=== PATIENT | female | born 1990 | race Caucasian/White ===

== ENCOUNTER 2024-03-08 16:30 | Emergency (ER) | payer OTHER ==
[~2024-03-08] VITALS: Ht 172.7 cm; Wt 65.8 kg
[~2024-03-08 16:30] MED LIST: VICODIN 5-3001 EACH PO
[2024-03-08] MEDS ORDERED: Midazolam Hydrochloride 5 MG/ML VIAL INH ONE (16:35)
[2024-03-08] MEDS ORDERED: Midazolam Hydrochloride 5 MG/5 ML VIAL IM ONE (17:00)
[2024-03-08 17:35] LABS: BASO % 0.4 % (0.0-1.0); EOS % 0.2 % (1.0-4.0); HEMATOCRIT 34.6 % (37.0-47.0); MEAN CELL VOLUME 90.1 fl (81.0-99.0); MEAN CORPUSCULAR HGB 29.7 pg (27.0-31.0); MEAN CORPUSCULAR HGB CONC 32.9 g/dl (33.0-37.0); MEAN PLATELET VOLUME 10.4 fl (9.6-12.3); MONO # 0.5 10*3/uL (0.1-1.0); MONO % 5.9 % (3.0-9.0); NEUT # 5.4 10*3/uL (2.3-7.9); NEUT % 66.3 % (47.0-73.0); PLATELET COUNT AUTOMATED 240 10*3/uL (130-400); RED BLOOD COUNT 3.84 10*6/uL (4.10-5.10); RED CELL DISTRI WIDTH 12.2 % (0-14.5); WHITE BLOOD COUNT 8.1 10*3/uL (4.8-10.8)
[2024-03-08 18:03] LABS: ALKALINE PHOSPHATASE 76 U/L (46-116); BUN 8 mg/dl (9-23); CHLORIDE 107 mmol/L (98-107); CPK 164 U/L (34-171); POTASSIUM 3.3 mmol/L (3.4-5.1); SGPT/ALT 21 U/L (5-49); TOTAL PROTEIN 7.7 gm/dL (6.0-8.0)
[2024-03-08 18:14] LABS: ETHYL ALCOHOL < 3.0 mg/dl (<3)
[2024-03-08 20:21] LABS: BILIRUBIN Negative (Negative); BLOOD Trace-Intact (Negative); CLARITY Clear (Clear); COLOR Yellow (Yellow); GLUCOSE Negative (Negative); KETONE Negative (Negative); LEUKO ESTERASE 2+ (Negative); NITRITE Negative (Negative); UROBILINOGEN 0.2 E.U./dl (0.0-1.0)
[2024-03-08 20:28] LABS: URINE AMPHETAMINES Negative (1000ng/ml); URINE BARBITURATES Negative (200ng/ml); URINE BENZODIAZEPINES Positive (200ng/ml); URINE CANNABINOIDS (THC) Positive (50ng/ml); URINE COCAINE Negative (300ng/ml); URINE METHADONE Negative (300ng/ml); URINE OPIATES Negative (300ng/ml); URINE PHENCYCLIDINE Negative (25ng/ml)
[2024-03-08 20:31] LABS: BACTERIA 1+; MUCOUS 1+; WBC 21-30 wbc/hpf (0-5)
[2024-03-08] MEDS ORDERED: POTASSIUM CHLORIDE 20 MEQ TAB PO ONE (23:35)
[2024-03-08] MEDS ORDERED: Ciprofloxacin Hydrochloride 500 MG TAB PO ONE (23:35)
== END 2024-03-09 03:03 ==
LOC: ED 16:30
PROVIDERS: Internal Medicine
DX: F25.0 Schizoaffective disorder, bipolar type (principal); E87.6 Hypokalemia; D64.9 Anemia, unspecified; N39.0 Urinary tract infection, site not specified; Z98.890 Other specified postprocedural states

== ENCOUNTER 2024-04-26 04:32 | Emergency (ER) | payer OTHER ==
[~2024-04-26] VITALS: Ht 172.7 cm; Wt 63.5 kg
[2024-04-26 05:00] LABS: URINE AMPHETAMINES Negative (1000ng/ml); URINE BARBITURATES Negative (200ng/ml); URINE BENZODIAZEPINES Negative (200ng/ml); URINE CANNABINOIDS (THC) Positive (50ng/ml); URINE COCAINE Negative (300ng/ml); URINE METHADONE Negative (300ng/ml); URINE OPIATES Negative (300ng/ml); URINE PHENCYCLIDINE Negative (25ng/ml)
== END 2024-04-26 07:52 | disposition home or self-care (01) ==
LOC: ED 04:32
PROVIDERS: Internal Medicine
DX: F19.10 Other psychoactive substance abuse, uncomplicated (principal); R20.0 Anesthesia of skin; R42 Dizziness and giddiness; R20.2 Paresthesia of skin; Z79.899 Other long term (current) drug therapy; Z98.890 Other specified postprocedural states